=== PATIENT | female | born 1970 | race Caucasian/White ===

== ENCOUNTER 2016-05-02 15:44 | Emergency (ER) | payer OTHER ==
[~2016-05-02] VITALS: Ht 167.6 cm; Wt 77.5 kg
[~2016-05-02 15:44] MED LIST: ALBU8.5H3 INH; BEN25 PO; CEPASTAT MT; CLOT15CR6 TOP; DOXY100T2 PO; IMIT25 PO
[2016-05-02 16:19] VITALS: Ht 167.6 cm; Wt 77.5 kg
[2016-05-02 19:09] LABS: URINE BLOOD (Dip) POC 2+ (NEGATIVE)
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
[2016-05-02] MEDS ORDERED: DIPHENHYDRAMINE 50 MG INJ IV STA (19:54)
[2016-05-02] MEDS ORDERED: KETOROLAC 30 MG INJ IV STA (19:54)
[2016-05-02] MEDS ORDERED: SOD CHLORIDE 0.9% 500 ML IV STA (19:54)
[2016-05-02] MEDS ORDERED: METOCLOPRAMIDE 10 MG INJ IV STA (19:54)
[2016-05-02] MEDS ORDERED: morphine 4 MG/ML VIAL IV STA (21:38)
[2016-05-02 23:11] VITALS: BP 96/73; PULSE 91; RESP 16
== END 2016-05-02 23:42 | disposition home or self-care (01) ==
LOC: E/R 15:44
DX: G43.909 Migraine, unspecified, not intractable, without status migrainosus (principal); M79.7 Fibromyalgia; R40.2142 Coma scale, eyes open, spontaneous, at arrival to emergency department; R40.2252 Coma scale, best verbal response, oriented, at arrival to emergency department; R40.2362 Coma scale, best motor response, obeys commands, at arrival to emergency department; J45.909 Unspecified asthma, uncomplicated; E66.9 Obesity, unspecified; Z68.27 Body mass index [BMI] 27.0-27.9, adult
CPT/HCPCS: 81003; 96374; 96375; J1200; J1885; J2270; J2765; J7040; Z7502

== ENCOUNTER → 2016-06-22 | Outpatient (CLI) | payer OTHER ==
[~2016-06-22] MED LIST changes: -ALBU8.5H3 INH; +BARIUM SULFATE 135 ML (E-Z HD) PO ONE; -BEN25 PO; -CEPASTAT MT; -CLOT15CR6 TOP; -DOXY100T2 PO
--- NOTE | 2016-06-22 15:04 | RADRPT ---
PROCEDURE: Video-fluoroscopy swallowing study. CLINICAL INDICATION: Dysphagia. TECHNIQUE: Fluoroscopic guided video swallowing study was done in conjunction with the speech ther apist. The study was confined to the oral, pharyngeal, and cervical phases of the swallowing mechani sm. 2.1 minutes of fluoroscopy time was used. COMPARISON: 01/20/2016. FINDINGS: There is no evidence of aspiration during the exam. IMPRESSION: 1. Normal study. No aspiration. 2. Please refer to the speech therapist's recommendations for future feedings. 3. If the the patient has persistent dysphasia, correlation with barium swallow or endoscopy should be considered. 4. No change from 01/20/2016. RPTAT: QQ .Craig Bernstein MD, MD Date Time Electronically viewed and signed by .Craig Bernstein MD, on 06/22/2016 15:04 .R/
== END | disposition home or self-care (01) ==
LOC: RAD 10:07
PROVIDERS: ATTEND Otolaryngology
DX: R13.10 Dysphagia, unspecified (principal)
CPT/HCPCS: 74230; 92611; Z7610

== ENCOUNTER 2018-06-14 01:42 | Observation (INO) | payer OTHER ==
[2018-06-14] VITALS (10 sets, daily range): BP systolic 104–138; BP diastolic 59–91; PULSE 76–106; RESP 20; Ht 170.2 cm; Wt 85.2 kg
[~2018-06-14] VITALS: Ht 170.2 cm; Wt 85.2 kg
[~2018-06-14 01:42] MED LIST changes: -BARIUM SULFATE 135 ML (E-Z HD) PO ONE; -IMIT25 PO; +SUMA25TA34 PO
[2018-06-14] MEDS ORDERED: METO-429 PO (02:35)
[2018-06-14] MEDS ORDERED: SUMATRIPTAN 25 MG TAB PO PRN (03:30)
[2018-06-14] MEDS ORDERED: ONDANSETRON 4 MG INJ IV PRN (03:30)
[2018-06-14] MEDS ORDERED: ACETAMINOPHEN 325 MG TAB PO PRN (03:30)
[2018-06-14] MEDS ORDERED: NITROGLYCERIN (SL) 0.4 MG TAB SL PRN (03:30)
[2018-06-14] MEDS ORDERED: NACL 0.9% 3 ML SYG IV SCH (03:30)
--- NOTE | 2018-06-14 06:20 | HP ---
Date/Time of Note Date/Time of Note DATE: 06/14/18 TIME: 06:17 Assessment/Plan VTE Prophylaxis Pharmacological prophylaxis: heparin Lines/Catheters IV Catheter Type (from Nrsg): Saline Lock Assessment/Plan Assessment/Plan 1. Chest pain: Rule out ACS. Given history of fibromyalgia, musculoskeletal origin is a possibility -Telemetry monitoring -Aspirin, beta-kiesha. As needed nitro and morphine -Check A1c, fasting lipid and TSH in a.m. -Trend troponin -Twelve-lead EKG -2D echo cardiology consult 2. History of fibromyalgia: Pain meds as needed 3. Hypertension: Continue metoprolol 4. Headache: Continue Imitrex Result Diagram: 06/14/18 0440 Results 24hrs Laboratory Tests Test 06/14/18 04:40 White Blood Count 10.0 # Red Blood Count 4.20 Hemoglobin 12.8 Hematocrit 38.9 Mean Corpuscular Volume 92.6 Mean Corpuscular Hemoglobin 30.5 Mean Corpuscular Hemoglobin Concent 32.9 Red Cell Distribution Width 13.1 Platelet Count 192 Mean Platelet Volume 9.0 # Immature Granulocytes % 0.700 H Neutrophils % 69.5 Lymphocytes % 22.7 Monocytes % 5.4 Eosinophils % 1.1 Basophils % 0.6 Nucleated Red Blood Cells % 0.0 Immature Granulocytes # 0.070 H Neutrophils # 7.0 Lymphocytes # 2.3 Monocytes # 0.5 Eosinophils # 0.1 Basophils # 0.1 Nucleated Red Blood Cells # 0.0 HPI/ROS Admit Date/Time Admit Date/Time Jun 14, 2018 at 01:42 Hx of Present Illness This is a 48-year-old female with a history of fibromyalgia, migraine headache, hypertension, depression who initially presented to an outside hospital ER complaining of chest pain. Chest pain is mostly left-sided and described as tightness/sharp. She stated pain is worse with walking. EKG without ST elevation or depression and first troponin negative. Patient was transferred to [facility] for insurance reason. Currently patient is complaining of headache. She has a history of migraine headache. On physical exam, chest pain was reproducible on palpation. PMH/Family/Social Past Medical History Medications Current Medications IV Flush (NS 3 ml) 3 ml PER PROTOCOL IV ; Start 06/14/18 at 03:30 Ondansetron HCl (Zofran Inj) 4 mg Q6H PRN IV NAUSEA/VOMITING; Start 06/14/18 at 03:30 Nitroglycerin (Nitroglycerin (Sl Tab) 0.4 Mg) 1 tab Q5M PRN SL .CHEST PAIN; Start 06/14/18 at 03:30 Acetaminophen (Tylenol Tab) 650 mg Q6H PRN PO .PAIN 1-3 OR TEMP; Start 06/14/18 at 03:30 Enoxaparin Sodium (Lovenox) 40 mg DAILY SC ; Start 06/14/18 at 09:00 Metoprolol Tartrate (Lopressor) 50 mg BID PO ; Start 06/14/18 at 09:00 Sumatriptan Succinate (Imitrex) 25 mg BID PRN PO MIGRAINE HEADACHE; Start 06/14/18 at 03:30 Coded Allergies: sulfamethoxazole (Verified Allergy, Severe, SHORT OF BREATH, 05/02/16) trimethoprim (Verified Allergy, Severe, SHORT OF BREATH, 05/02/16) Penicillins (Unverified Allergy, Mild, ITCHING, 05/02/16) hydrocodone (Verified Allergy, Mild, 05/02/16) ITCHING erythromycin base (Unverified Allergy, Unknown, 05/02/16) Past Surgical History Past Surgical Hx: no surgical history Family History Significant Family History: other Social History Smoking Status: Never smoker Exam/Review of Systems Vital Signs Vitals Vital Signs Date Temp Pulse Resp B/P (MAP) Pulse Ox O2 O2 Flow FiO2 Time Delivery Rate 06/14/18 85 04:00 06/14/18 98.5 20 138/91 97 Room Air 01:50 (107) Exam Constitutional: other (No acute distress) Head: normocephalic, atraumatic Eyes: EOMI, PERRL Respiratory: clear to auscultation Cardiovascular: regular rate and rhythm Gastrointestinal: soft Extremities: normal pulses NEVIN LE MD Jun 14, 2018 06:20
[2018-06-14] MEDS ORDERED: DIPHENHYDRAMINE 25 MG CAP PO PRN (08:00)
[2018-06-14] MEDS: ASPIRIN (EC) 81 MG TAB PO SCH (08:42)
[2018-06-14] MEDS: METOPROLOL 50 MG TAB PO SCH ×2 (08:43→21:00)
[2018-06-14] MEDS: ENOXAPARIN 40 MG/0.4 ML SYG SC SCH (08:46)
--- NOTE | 2018-06-14 12:20 | PN ---
Date/Time of Note Date/Time of Note DATE: 06/14/18 TIME: 12:18 Assessment/Plan VTE Prophylaxis Risk score (from Nsg)>0 risk: 3 SCD applied (from Ns): Yes SCD contraindicated: low risk/ambulating Pharmacological prophylaxis: LMWH Lines/Catheters IV Catheter Type (from Nrs): Saline Lock Assessment/Plan Hospital Course Assessment and plan 1. Atypical chest pain, stable, Rule out ACS. Chest x-ray CTA negative at [facility]. 2. Chronic fibromyalgia 3. Constipation, no BM for 2 days 4. Headache history of migraines stable 5. GERD? 6. Recent bronchitis 7. Likely pleurisy 8. Right sided debility due to electrocution Subjective: Sharp left central chest pain. Nonexertional. Increase with cough or breathing. No chest wall injury. No alcohol use. No diaphoresis nausea vomiting. Objective: Vital signs stable sinus rhythm sinus tach Physical exam No pallor adenopathy JVD Regular no murmur gallop Clear no tachypnea no rash positive reproducible component Benign No edema/Homans Result Diagram: 06/14/18 0440 06/14/18 0440 Results 24hrs Laboratory Tests Test 06/14/18 04:40 06/14/18 10:45 White Blood Count 10.0 # Red Blood Count 4.20 Hemoglobin 12.8 Hematocrit 38.9 Mean Corpuscular Volume 92.6 Mean Corpuscular Hemoglobin 30.5 Mean Corpuscular Hemoglobin Concent 32.9 Red Cell Distribution Width 13.1 Platelet Count 192 Mean Platelet Volume 9.0 # Immature Granulocytes % 0.700 H Neutrophils % 69.5 Lymphocytes % 22.7 Monocytes % 5.4 Eosinophils % 1.1 Basophils % 0.6 Nucleated Red Blood Cells % 0.0 Immature Granulocytes # 0.070 H Neutrophils # 7.0 Lymphocytes # 2.3 Monocytes # 0.5 Eosinophils # 0.1 Basophils # 0.1 Nucleated Red Blood Cells # 0.0 Sodium Level 142 Potassium Level 4.2 Chloride Level 104 Carbon Dioxide Level 25 Anion Gap 13 Blood Urea Nitrogen 15 Creatinine 0.57 Est Glomerular Filtrat Rate mL/min > 60 Glucose Level 140 Hemoglobin A1c 7.1 H Calcium Level 9.0 Total Bilirubin 1.4 H Direct Bilirubin 0.00 Indirect Bilirubin 1.4 H Aspartate Amino Transf (AST/SGOT) 115 H Alanine Aminotransferase (ALT/SGPT) 192 H Alkaline Phosphatase 97 Creatine Kinase 31 36 Creatine Kinase Index 0.7 0.6 Creatinine Kinase MB (Mass) < 0.22 < 0.22 Troponin I < 0.012 < 0.012 Total Protein 7.7 Albumin 4.3 Globulin 3.40 H Albumin/Globulin Ratio 1.26 Triglycerides Level 184 H Cholesterol Level 252 H LDL Cholesterol, Calculated 166 HDL Cholesterol 49 Cholesterol/HDL Ratio 5.1 Thyroid Stimulating Hormone (TSH) 1.360 Exam/Review of Systems Exam Vitals Vital Signs Date Temp Pulse Resp B/P (MAP) Pulse Ox O2 O2 Flow FiO2 Time Delivery Rate 06/14/18 106 08:01 06/14/18 98.6 20 128/72 98 Room Air 07:54 (90) Results Results 24hrs Laboratory Tests Test 06/14/18 04:40 06/14/18 10:45 White Blood Count 10.0 # Red Blood Count 4.20 Hemoglobin 12.8 Hematocrit 38.9 Mean Corpuscular Volume 92.6 Mean Corpuscular Hemoglobin 30.5 Mean Corpuscular Hemoglobin Concent 32.9 Red Cell Distribution Width 13.1 Platelet Count 192 Mean Platelet Volume 9.0 # Immature Granulocytes % 0.700 H Neutrophils % 69.5 Lymphocytes % 22.7 Monocytes % 5.4 Eosinophils % 1.1 Basophils % 0.6 Nucleated Red Blood Cells % 0.0 Immature Granulocytes # 0.070 H Neutrophils # 7.0 Lymphocytes # 2.3 Monocytes # 0.5 Eosinophils # 0.1 Basophils # 0.1 Nucleated Red Blood Cells # 0.0 Sodium Level 142 Potassium Level 4.2 Chloride Level 104 Carbon Dioxide Level 25 Anion Gap 13 Blood Urea Nitrogen 15 Creatinine 0.57 Est Glomerular Filtrat Rate mL/min > 60 Glucose Level 140 Hemoglobin A1c 7.1 H Calcium Level 9.0 Total Bilirubin 1.4 H Direct Bilirubin 0.00 Indirect Bilirubin 1.4 H Aspartate Amino Transf (AST/SGOT) 115 H Alanine Aminotransferase (ALT/SGPT) 192 H Alkaline Phosphatase 97 Creatine Kinase 31 36 Creatine Kinase Index 0.7 0.6 Creatinine Kinase MB (Mass) < 0.22 < 0.22 Troponin I < 0.012 < 0.012 Total Protein 7.7 Albumin 4.3 Globulin 3.40 H Albumin/Globulin Ratio 1.26 Triglycerides Level 184 H Cholesterol Level 252 H LDL Cholesterol, Calculated 166 HDL Cholesterol 49 Cholesterol/HDL Ratio 5.1 Thyroid Stimulating Hormone (TSH) 1.360 Medications Medication Current Medications IV Flush (NS 3 ml) 3 ml PER PROTOCOL IV ; Start 06/14/18 at 03:30 Ondansetron HCl (Zofran Inj) 4 mg Q6H PRN IV NAUSEA/VOMITING; Start 06/14/18 at 03:30 Nitroglycerin (Nitroglycerin (Sl Tab) 0.4 Mg) 1 tab Q5M PRN SL .CHEST PAIN; Start 06/14/18 at 03:30 Acetaminophen (Tylenol Tab) 650 mg Q6H PRN PO .PAIN 1-3 OR TEMP; Start 06/14/18 at 03:30 Enoxaparin Sodium (Lovenox) 40 mg DAILY SC Last administered on 06/14/18at 08:46; Admin Dose 40 MG; Start 06/14/18 at 09:00 Metoprolol Tartrate (Lopressor) 50 mg BID PO Last administered on 06/14/18at 08:43; Admin Dose 50 MG; Start 06/14/18 at 09:00 Sumatriptan Succinate (Imitrex) 25 mg BID PRN PO MIGRAINE HEADACHE Last administered on 06/14/18at 11:18; Admin Dose 25 MG; Start 06/14/18 at 03:30 Aspirin (Halfprin) 81 mg DAILY PO Last administered on 06/14/18at 08:42; Admin Dose 81 MG; Start 06/14/18 at 09:00 Diphenhydramine HCl (Benadryl) 25 mg Q6H PRN PO ITCHING; Start 06/14/18 at 08:00 JANET NICHOLSON MD Jun 14, 2018 12:20
[2018-06-14] MEDS ORDERED: BISACODYL (EC) 5 MG TAB PO PRN (12:30)
[2018-06-14] MEDS ORDERED: KETOROLAC 15 MG INJ IV PRN (12:30)
[2018-06-14] MEDS ORDERED: BISACODYL 10 MG SUPP PR PRN (12:30)
[2018-06-14] MEDS: MAGNESIUM HYDROXIDE 30ML CUP PO SCH ×2 (15:31→20:03)
--- NOTE | 2018-06-14 18:09 | RADRPT ---
Echocardiogram Report Patient Name: Sabina GUADARRAMA ID: [id number] : 1970 (48y 3m)Study Date: 06/14/2018 9:47:06 AM Gender: FAccession #: [id number] Tech: Jailene [facility] Location: 3[facility] Ref.Physician: NEVIN LE Height(Cm): BSA: Weight(Kg): Quality: AdequateAccount #: Procedures: Echocardiographic Report: Transthoracic echocardiogram with complete 2D, M-Mode, and doppler examination. Indications: Chest Pain. Measurements: 2D/M Mode Doppler Measurement Value Normal Range Measurement Value Normal Range LVIDd 2D 3.6 [ 3.8 - 5.2 ] cm LVOT Peak Td 0.8 [ 70.0 - 110.0 ] cm/sec LVIDs 2D 2.4 [ 2.2 - 3.5 ] cm LVOT Peak PG 2.0 [ 2.0 - 6.0 ] mmHg LVPWd 2D 1.0 [ 0.6 - 0.9 ] cm MV E Peak Td 1.0 [ 60.0 - 130.0 ] cm/sec IVSd 2D 1.2 [ 0.6 - 0.9 ] cm MV A Peak Td 0.7 [ 100.0 - 120.0 ] cm/sec IVS/LVPW 2D 1.3 ratio MV E/A 1.4 [ 0.8 - 1.5 ] ratio AoR Diam 2D 2.3 [ 2.3 - 3.1 ] cm MV Decel Time 162 [ 104 - 258 ] msec LA/Ao 2D 1 ratio Lat E` Td 0.1 [ 10.0 - 15.0 ] cm/sec LA Dimen 2D 2.7 [ 2.7 - 3.8 ] cm MV E/A 1.4 [ 0.8 - 1.5 ] ratio RA Pressure 3.0 mmHg Findings: Left Ventricle: Normal left ventricular systolic function. Normal left ventricular cavity size. Normal left ventricular wall thickness. Ejection fraction is visually estimated at 60 %. Right Ventricle: Normal right ventricular size. Normal right ventricular systolic function. Left Atrium: The left atrium is normal in size. Right Atrium: The right atrium is normal in size. Mitral Valve: Mild mitral leaflet calcification. Mild mitral annular calcification. Trace mitral regurgitation. Aortic Valve: No hemodynamically significant aortic stenosis by doppler. Aortic cusps appear mildly calcified. Tricuspid Valve: Normal appearance and function of the tricuspid valve with trace physiologic regurgitation. Pericardium: Normal pericardium with no significant pericardial effusion. Aorta: Normal aortic root. IVC: Normal size and normal respiratory collapse consistent with normal right atrial pressure. Conclusions: Normal left ventricular systolic function. Normal left ventricular cavity size. Normal left ventricular wall thickness. Ejection fraction is visually estimated at 60 %. Normal right ventricular size. Normal right ventricular systolic function. The left atrium is normal in size. The right atrium is normal in size. No significant valvular stenosis or regurgitation seen. Normal pericardium with no significant pericardial effusion. Electronically Signed By: Dane Padro 2018-06-14 18:08:51 PDT
[2018-06-15] VITALS (7 sets, daily range): BP systolic 120–151; BP diastolic 63–79; PULSE 68–88; RESP 16–20
[2018-06-15] MEDS: MAGNESIUM HYDROXIDE 30ML CUP PO SCH (09:00)
[2018-06-15] MEDS: ASPIRIN (EC) 81 MG TAB PO SCH (09:07)
[2018-06-15] MEDS: METOPROLOL 50 MG TAB PO SCH (09:09)
[2018-06-15] MEDS: ENOXAPARIN 40 MG/0.4 ML SYG SC SCH (09:10)
--- NOTE | 2018-06-15 13:05 | DS ---
Date/Time of Note Date/Time of Note DATE: 06/15/18 TIME: 13:01 Discharge Summary Admission/Discharge Info Admit Date/Time Jun 14, 2018 at 01:42 Discharge Date/Time Patient Condition: Stable Procedures Right upper quadrant ultrasound CLINICAL INDICATION: Abnormal liver function tests FINDINGS: The liver is increased in echogenicity and measures 20.3 cm. No focal hepatic masses are seen. Gallbladder surgically absent. No fluid collection is noted in the gallbladder fossa.. The intra and extrahepatic bile ducts are normal in caliber. The common bile duct measures 5 mm. Midline images demonstrate the pancreas to be normal in echogenicity without obvious inflammatory change. Survey views of the right kidney demonstrate no evidence of hydronephrosis or renal calculi. The right kidney measures 10.9 cm. IMPRESSION: 1. Status post cholecystectomy. There is no fluid collection in the gallbladder fossa. 2. No biliary duct dilatation. 3. Fatty liver. 4. Hepatomegaly Hepatitis panel: Negative AST/ ALT: 115/ 120 2D echo Conclusions: Normal left ventricular systolic function. Normal left ventricular cavity size. Normal left ventricular wall thickness. Ejection fraction is visually estimated at 60 %. Normal right ventricular size. Normal right ventricular systolic function. The left atrium is normal in size. The right atrium is normal in size. No significant valvular stenosis or regurgitation seen. Normal pericardium with no significant pericardial effusion. Hx of Present Illness 48-year-old female admitted with atypical chest pain Hospital Course Hospitalist coverage/hospital course -Admitted and evaluated for atypical chest pain. No ACS. Risk factors minimal. Stable and fit for discharge to follow-up with primary. Abnormal LFTs probably due to [place] this. Can be monitored as an outpatient. Ultrasound did not show any stones or sludge etc. Already has her gallbladder out. I believe she has pleurisy to re-consent bronchitis which should improve down the line. Adjust diet for possible GERD reflux assessment and plan 1. Atypical chest pain, stable, Ruled out ACS. Cxr/ CTA negative at [facility]. 2. Chronic fibromyalgia 3. Constipation, no BM for 2 days 4. Headache history of migraines stable 5. GERD? 6. Recent bronchitis 7. Likely pleurisy 8. Right sided debility due to electrocution Subjective: Sharp left central chest pain. Nonexertional. Increase with cough or breathing. No chest wall injury. No alcohol use. No diaphoresis nausea vomiting. Objective: Vital signs stable sinus rhythm sinus tach Physical exam No pallor adenopathy JVD Regular no murmur gallop Clear no tachypnea no rash positive reproducible component Benign No edema/Homans Home Meds Active Scripts Sumatriptan Succinate* (Imitrex*) 25 Mg Tablet, 25 MG PO BID PRN for MIGRAINE HEADACHE, #30 TAB May repeat after 2 hours if needed; MAX 200 mg/24 hours Prov:ANNALISA BEASLEY VLeif RADIO/TV TECHNICIAN 01/21/16 Reported Medications Metoprolol Tartrate* (Lopressor*) 50 Mg Tab, 50 MG PO BID, #60 TAB 06/14/18 Primary Care Provider Not On Staff Doctor Time spent on discharge: > 30 minutes Pending Labs Laboratory Tests Test 06/15/18 05:49 White Blood Count 6.4 10^3/ul (4.8-10.8) Red Blood Count 4.09 10^6/ul (4.20-5.40) Hemoglobin 12.3 g/dl (12.0-16.0) Hematocrit 37.4 % (37.0-47.0) Mean Corpuscular Volume 91.4 fl (82.0-101.0) Mean Corpuscular Hemoglobin 30.1 pg (29.0-33.0) Mean Corpuscular Hemoglobin Concent 32.9 g/dl (32.0-37.0) Red Cell Distribution Width 13.0 % (11.5-14.5) Platelet Count 188 10^3/UL (140-415) Mean Platelet Volume 8.8 fl (7.4-10.4) Immature Granulocytes % 0.800 % (0.001-0.429) Neutrophils % 54.2 % (39.0-77.0) Lymphocytes % 33.5 % (15.0-51.0) Monocytes % 7.3 % (0.0-11.0) Eosinophils % 3.4 % (0.0-7.0) Basophils % 0.8 % (0.0-2.0) Nucleated Red Blood Cells % 0.0 /100WBC (0.0-0.0) Immature Granulocytes # 0.050 10^3/ul (0.0-0.031) Neutrophils # 3.5 10^3/ul (1.6-7.5) Lymphocytes # 2.2 10^3/ul (0.8-2.9) Monocytes # 0.5 10^3/ul (0.3-0.9) Eosinophils # 0.2 10^3/ul (0.0-0.5) Basophils # 0.1 10^3/ul (0.0-0.1) Nucleated Red Blood Cells # 0.0 10^3/ul (0.0-0.0) Sodium Level 140 mmol/L (135-144) Potassium Level 4.0 mmol/L (3.5-5.1) Chloride Level 104 mmol/L (97-110) Carbon Dioxide Level 25 mmol/L (21-31) Anion Gap 11 (5-13) Blood Urea Nitrogen 16 mg/dl (7-20) Creatinine 0.60 mg/dl (0.44-1.00) Est Glomerular Filtrat Rate mL/min > 60 mL/min (>60) Glucose Level 128 mg/dl (70-220) Calcium Level 8.8 mg/dl (8.4-10.2) Phosphorus Level 3.3 mg/dl (2.5-4.9) Magnesium Level 2.3 mg/dl (1.7-2.5) Total Bilirubin 1.3 mg/dl (0.2-1.3) Direct Bilirubin 0.00 mg/dl (0.00-0.20) Indirect Bilirubin 1.3 mg/dl (0-1.1) Aspartate Amino Transf (AST/SGOT) 100 IU/L (15-46) Alanine Aminotransferase (ALT/SGPT) 193 IU/L (13-69) Alkaline Phosphatase 92 IU/L (42-121) Lactate Dehydrogenase 594 IU/L (313-618) Total Protein 7.3 g/dl (6.1-8.1) Albumin 4.1 g/dl (3.3-4.9) Globulin 3.20 g/dl (1.3-3.2) Albumin/Globulin Ratio 1.28 Lipase 47 U/L (23-300) Thyroid Stimulating Hormone (TSH) 2.010 MIU/L (0.465-4.680) Hepatitis B Surface Antigen NEGATIVE (NEGATIVE) Hepatitis B Core Total Antibody NEGATIVE (NEGATIVE) Hepatitis C Antibody NEGATIVE (NEGATIVE) JANET NICHOLSON MD Jun 15, 2018 13:05
--- NOTE | 2018-06-15 13:06 | PDOCDIS ---
Discharge Instructions CONDITION [id number] Patient Condition: [id number] Stable HOME CARE INSTRUCTIONS: [id number] Diet Instructions: [id number] Low Fat /Cholesterol ACTIVITY: [id number] Activity Restrictions: [id number] No Restrictions Slowly Increase Activity Avoid heavy lifting Do not Drive FOLLOW UP/APPOINTMENTS Follow-up Plan appt Primary 1leslyek JANET NICHOLSON MD Jun 15, 2018 13:06
[2018-06-15] MEDS ORDERED: GUAI5SYR2 PO (13:08)
[2018-06-15] MEDS ORDERED: BISA5TAB6 PO (13:08)
[2018-06-15] MEDS ORDERED: ACET325T33 PO (13:08)
[2018-06-15] MEDS ORDERED: FAMO20TA18 PO (13:08)
== END 2018-06-15 15:30 | disposition home or self-care (01) ==
LOC: MS3 01:42 → INTOOBSV 01:42
PROVIDERS: ADMIT Internal Medicine; ATTEND Internal Medicine
DX: R07.89 Other chest pain (principal); M79.7 Fibromyalgia; K59.00 Constipation, unspecified; R51 Headache; R10.11 Right upper quadrant pain
CPT/HCPCS: 76705; 80053; 80061; 82550; 82553; 83036; 83615; 83690; 83735; 84100; 84443; 84484; 85014; 85018; 85025; 86704; 86709; 86803; 87340; 93005; 93306; J1650; Z7500; Z7610; 99217; G0378

== ENCOUNTER 2018-07-12 12:24 | Emergency (ER) | payer SELFPAY ==
[~2018-07-12] VITALS: Wt 82.2 kg
[~2018-07-12 12:24] MED LIST changes: +ACET325T33 PO; +BISA5TAB6 PO; +FAMO20TA18 PO; +GUAI5SYR2 PO; +METO-429 PO
[2018-07-12 12:52] VITALS: BP 168/92; PULSE 102; RESP 20
== END 2018-07-12 15:07 | disposition left against medical advice (07) ==
LOC: FTE 12:24
DX: Z53.21 Procedure and treatment not carried out due to patient leaving prior to being seen by health care provider (principal)